=== PATIENT | male | born 1955 | race Caucasian/White ===

== ENCOUNTER 2017-05-29 09:56 | Day surgery (SDC) | payer MEDICARE, MEDICAID ==
[~2017-05-29] VITALS: Ht 162.6 cm; Wt 59.9 kg
[~2017-05-29 09:56] MED LIST: (None)0.5 MG PO; LEXAPRO10 MG PO; LORATADINE10 M3 PO; METRONIDAZOL0.751 EX; OMEPRAZOLE20 M1 PO; PHENYTOIN EX100 MG PO; POLYETH GLYC1450 MG PO; SYSTANE ULTRA OU
[2017-05-29 14:14] VITALS: BP 89/54
== END 2017-05-29 13:58 | disposition home or self-care (01) ==
LOC: ENDO 09:56
PROVIDERS: ATTEND Internal Medicine Gastroenterology
PROC: 0DJD8ZZ Inspection of Lower Intestinal Tract, Via Natural or Artificial Opening Endoscopic (ICD-10-PCS; principal; 2017-05-29)
DX: K59.00 Constipation, unspecified (principal); R14.0 Abdominal distension (gaseous); K64.4 Residual hemorrhoidal skin tags; K21.9 Gastro-esophageal reflux disease without esophagitis; F03.90 Unspecified dementia, unspecified severity, without behavioral disturbance, psychotic disturbance, mood disturbance, and anxiety